=== PATIENT | female | born 2000 | race Caucasian/White ===

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

== ENCOUNTER 2018-02-13 07:37 | Emergency (ER) | payer OTHER ==
[~2018-02-13] VITALS: Ht 157.5 cm; Wt 61.3 kg
[~2018-02-13 07:37] MED LIST changes: -ABIL5TAB6 PO; -IBUP400T20 PO; -LORT5TAB PO; +MUPI2OIN TOPICAL; +NUVAMIS VAGINAL; -ZOLO20CO PO
[2018-02-13 07:49] VITALS: BP 123/61; PULSE 71; RESP 16; TEMP 97.7; O2SAT 98
[2018-02-13 08:05] LABS: BILIRUBIN, URINE NEG (NEG); BLOOD, URINE MOD (NEG); GLUCOSE,URINE NEG (NEG); KETONE, URINE NEG (NEG); NITRITE,URINE POS (NEG); URINE COLOR YELLOW (YELLW/STRAW); URINE LEUKOCYTE ESTERASE LARGE (NEG)
[2018-02-13 08:10] LABS: WBC, URINE INNUM /hpf (0-5); WHITE BLOOD CELL CLUMPS MOD
[2018-02-13 08:11] LABS: BACTERIA, URINE MANY /hpf; RBC, URINE 15-19 /hpf (0-3); SQUAMOUS EPITHELIAL CELL URINE > 8 /hpf (0-5)
[2018-02-13] MEDS ORDERED: KETOROLAC TROMETHAMINE 30 MG/ML (IVP) VIAL IV PUSH ONE (08:30)
[2018-02-13] MEDS ORDERED: SODIUM CHLOR 0.9% 1000 ML INJ 1,000 ML IV ONE (08:30)
[2018-02-13] MEDS ORDERED: cefTRIAXone INJ 2,000 MG in SODIUM CHLORIDE 0.9% INJ 100 ML IV ONE (08:30)
--- NOTE | 2018-02-13 08:34 | PD ---
HPI Chief Complaint: Flank/Kidney Pain Time Seen by Provider: 08:26 Travel History International Travel<30 days: No Contact w/Intl Traveler<30days: No Traveled to known affect area: No History of Present Illness HPI This 17-year-old female is complaining of right flank pain. 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 Was given 5 days of Bactrim. She took that day after the Bactrim was finished she started having quite bad flank pain. She has had frequent urinary tract infections in the past. 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 She has taken ibuprofen without much relief. He also has some digestive issues with swelling of her lower intestine. She says that is under control at this time. She is having severe pain in the right flank which has kept her from sleeping PFSH Past Medical History ADHD: No Depression: Yes Cancer: No Cardiovascular Problems: No Diabetes: No Diminished Hearing: No Psychiatric: No Immunizations Current: Yes Migraines: No Seizures: No Thyroid Disease: No Ulcer: Yes Influenza Vaccination: No ?: Not LMP: 12/19/17 Past Surgical History Surgical History: No Previous Surgery Appendectomy: No Cholecystectomy: No Other Surgery: No Social History Alcohol Use: Yes (OCCAS) Tobacco Use: No Substance Use: No Allergies-Medications (Allergen,Severity, Reaction): Coded Allergies: No Known Allergies (Verified Adverse Reaction, Unknown, 02/13/18) Reported Meds & Prescriptions Reported Meds & Active Scripts Active No Active Prescriptions or Reported Medications Review of Systems General / Constitutional: No: Fever, Chills Eyes: No: Diploplia, Blurred Vision HENT: No: Vertigo, Lightheadedness Cardiovascular: No: Chest Pain or Discomfort, Palpitations Respiratory: No: Cough, Shortness of Breath Gastrointestinal: No: Diarrhea, Abdominal Pain Genitourinary: Positive: Flank Pain Musculoskeletal: No: Myalgias, Arthralgias Skin: No Rash Neurologic: No: Weakness Endocrine: No: Heat Intolerance, Cold Intolerance Hematologic/Lymphatic: No: Easy Bruising Physical Exam Narrative GENERAL: Well-developed female SKIN: Focused skin assessment warm/dry. HEAD: Atraumatic. Normocephalic. EYES: Pupils equal and round. No scleral icterus. No injection or drainage. ENT: No nasal bleeding or discharge. Mucous membranes pink and moist. NECK: Trachea midline. No JVD. CARDIOVASCULAR: Regular rate and rhythm. No murmur appreciated. RESPIRATORY: No accessory muscle use. Clear to auscultation. Breath sounds equal bilaterally. GASTROINTESTINAL: Abdomen soft, non-tender, nondistended. Hepatic and splenic margins not palpable. There is right CVA tenderness MUSCULOSKELETAL: No obvious deformities. No clubbing. No cyanosis. No edema. NEUROLOGICAL: Awake and alert. No obvious cranial nerve deficits. Motor grossly within normal limits. Normal speech. PSYCHIATRIC: Appropriate mood and affect; insight and judgment normal. Data Data Last Documented VS Vital Signs Date Time Temp Pulse Resp B/P (MAP) Pulse Ox O2 Delivery O2 Flow Rate FiO2 02/13/18 09:00 89 20 91/53 (66) 98 02/13/18 07:49 97.7 Orders Orders Urinalysis - C+S If Indicated (02/13/18 07:39) Ed Urine Pregnancytest Poc (02/13/18 07:39) Urine Culture (02/13/18 07:56) Complete Blood Count With Diff (02/13/18 08:30) Basic Metabolic Panel (Bmp) (02/13/18 08:30) Ct Abd/Pel W/O Iv Contrast (02/13/18 08:30) Sodium Chlor 0.9% 1000 Ml Inj (Ns 1000 M (02/13/18 08:30) Ceftriaxone Inj (Rocephin Inj) (02/13/18 08:30) Ketorolac Inj (Toradol Inj) (02/13/18 08:30) Hydromorphone Pf Inj (Dilaudid Pf Inj) (02/13/18 10:30) Ondansetron Inj (Zofran Inj) (02/13/18 10:30) Labs Laboratory Tests Test 02/13/18 07:56 02/13/18 08:40 Urine Collection Type CLEAN CATCH Urine Color YELLOW Urine Turbidity CLOUDY Urine pH 6.0 Urine Specific [place] 1.020 Urine Protein 30 mg/dL Urine Glucose (UA) NEG mg/dL Urine Ketones NEG mg/dL Urine Occult Blood MOD Urine Nitrite POS Urine Bilirubin NEG Urine Urobilinogen 0.2 MG/DL Urine Leukocyte Esterase LARGE Urine RBC 15-19 /hpf Urine WBC INNUM /hpf Urine WBC Clumps MOD Urine Squamous Epithelial Cells > 8 /hpf Urine Bacteria MANY /hpf Microscopic Urinalysis Comment CULTURE INDICATED Urine Collection Time 07:56 White Blood Count 6.4 TH/MM3 Red Blood Count 4.38 MIL/MM3 Hemoglobin 12.9 GM/DL Hematocrit 38.6 % Mean Corpuscular Volume 88.0 FL Mean Corpuscular Hemoglobin 29.6 PG Mean Corpuscular Hemoglobin Concent 33.6 % Red Cell Distribution Width 13.0 % Platelet Count 158 TH/MM3 Mean Platelet Volume 7.4 FL Neutrophils (%) (Auto) 81.0 % Lymphocytes (%) (Auto) 10.4 % Monocytes (%) (Auto) 6.9 % Eosinophils (%) (Auto) 1.0 % Basophils (%) (Auto) 0.7 % Neutrophils # (Auto) 5.2 TH/MM3 Lymphocytes # (Auto) 0.7 TH/MM3 Monocytes # (Auto) 0.4 TH/MM3 Eosinophils # (Auto) 0.1 TH/MM3 Basophils # (Auto) 0.0 TH/MM3 CBC Comment DIFF FINAL Differential Comment Blood Urea Nitrogen 12 MG/DL Creatinine 0.85 MG/DL Random Glucose 89 MG/DL Calcium Level 9.0 MG/DL Sodium Level 140 MEQ/L Potassium Level 4.1 MEQ/L Chloride Level 108 MEQ/L Carbon Dioxide Level 27.2 MEQ/L Anion Gap 5 MEQ/L Estimat Glomerular Filtration Rate 86 ML/MIN [facility] Medical Decision Making Medical Screen Exam Complete: Yes Emergency Medical Condition: Yes Medical Record Reviewed: Yes Differential Diagnosis Differential includes UTI, renal colic, Narrative Course Patient was complaining of quite severe pain so was concerned that she might have a kidney stone. A CT has been done and is negative for stone or hydronephrosis. Her white count is negative. Her urinalysis does show innumerable white cells. She has been given initial dose of Rocephin. I will treat her with Cipro as she has failed Bactrim. I will also prescribe some [place] as ibuprofen has not been helping her pain Diagnosis Primary Impression: Pyelonephritis Scripts Hydrocodone-Acetaminophen ([place]) 5 Mg-325 Mg Tab 1 TAB PO Q4H Y for PAIN, #12 TAB 0 Refills Prov: Martínez Sarmiento MD 02/13/18 Ciprofloxacin (Cipro) 500 Mg Tab 500 MG PO BID for Infection for 10 Days, #20 TAB 0 Refills Prov: Martínez Sarmiento MD 02/13/18 Disposition: 01 DISCHARGE HOME Condition: Stable Martínez Sarmiento MD February 13, 2018 08:34
[2018-02-13 08:48] LABS: AUTOMATED NEUTROPHIL # 5.2 TH/MM3 (1.8-7.7); BASOPHIL % 0.7 % (0.0-2.0); EOSINOPHIL # 0.1 TH/MM3 (0-0.4); HEMATOCRIT 38.6 % (35.0-46.0); HEMOGLOBIN 12.9 GM/DL (11.6-15.3); LYMPH % 10.4 % (9.0-44.0); LYMPHOCYTE # 0.7 TH/MM3 (1.0-4.8); MEAN CORPUSCULAR HEMOGLOBIN 29.6 PG (27.0-34.0); MEAN CORPUSCULAR HGB CONC 33.6 % (32.0-36.0); MEAN PLATELET VOLUME 7.4 FL (7.0-11.0); MONO % 6.9 % (0.0-8.0); MONOCYTE # 0.4 TH/MM3 (0-0.9); PLATELET COUNT 158 TH/MM3 (150-450); RED BLOOD COUNT 4.38 MIL/MM3 (4.00-5.30); WHITE BLOOD COUNT 6.4 TH/MM3 (4.0-11.0)
[2018-02-13 08:55] LABS: BICARBONATE 27.2 MEQ/L (21.0-32.0)
[2018-02-13 08:58] LABS: CREATININE 0.85 MG/DL (0.50-1.00)
[2018-02-13 09:00] VITALS: BP 91/53; PULSE 89; RESP 20; O2SAT 98
--- NOTE | 2018-02-13 10:16 | RADRPT ---
EXAM DATE/TIME: 02/13/2018 09:42 [place] COMPARISON: No previous studies available for comparison. INDICATIONS : Right flank pain. ORAL CONTRAST: No oral contrast ingested. RADIATION DOSE: 4.38 CTDIvol (mGy) MEDICAL HISTORY : None SURGICAL HISTORY : None. ENCOUNTER: Initial ACUITY: 3 days PAIN SCALE: 7/10 LOCATION: Right flank TECHNIQUE: Volumetric scanning of the abdomen and pelvis was performed. Using automated exposure control and ad justment of the mA and/or kV according to patient size, radiation dose was kept as low as reasonably achievable to obtain optimal diagnostic quality images. DICOM format image data is available electro nically for review and comparison. FINDINGS: LOWER LUNGS: The visualized lower lungs are clear. LIVER: Visualized portions are grossly unremarkable. SPLEEN: Visualized portions are grossly unremarkable. PANCREAS: Within normal limits. KIDNEYS: Normal in size and shape. There is no mass, stone, or hydronephrosis. ADRENAL GLANDS: Within normal limits. VASCULAR: There is no aortic aneurysm. BOWEL/MESENTERY: The stomach, small bowel, and colon demonstrate no acute abnormality. There is no free intraperitone al air or fluid. ABDOMINAL WALL: Within normal limits. RETROPERITONEUM: There is no lymphadenopathy. BLADDER: No wall thickening or mass. REPRODUCTIVE: Within normal limits. INGUINAL: There is no lymphadenopathy or hernia. MUSCULOSKELETAL: Within normal limits for patient age. CONCLUSION: No evidence of kidney stones or hydronephrosis. Charly Headley MD on February 13, 2018 at 10:10 Board Certified Radiologist. This report was verified electronically.
[2018-02-13] MEDS ORDERED: CIPR-9 PO (10:24)
[2018-02-13] MEDS ORDERED: NORC5TAB PO (10:24)
[2018-02-13 10:27] VITALS: BP 100/61; PULSE 67; RESP 20; O2SAT 94
[2018-02-13] MEDS ORDERED: ONDANSETRON HCL 4 MG/2 ML VIAL IV PUSH ONE (10:30)
[2018-02-13] MEDS ORDERED: HYDROmorphone HCL PF 2 MG/ML VIAL IV PUSH ONE (10:30)
[2018-02-13] MEDS ORDERED: SODIUM CHLORID 0.9% 500 ML INJ 500 ML IV ONE (10:30)
[2018-02-13 11:12] VITALS: BP 109/63; PULSE 61; RESP 20; O2SAT 95
== END 2018-02-13 11:22 | disposition home or self-care (01) ==
LOC: PHED 07:37
DX: N12 Tubulo-interstitial nephritis, not specified as acute or chronic (principal); B96.20 Unspecified Escherichia coli [E. coli] as the cause of diseases classified elsewhere; F32.9 Major depressive disorder, single episode, unspecified; Z87.440 Personal history of urinary (tract) infections
CPT/HCPCS: 74176; 80048; 81001; 84703; 85025; 87077; 87086; 87186; 96361; 96365; 96375; 99284; J0696; J1170; J1885; J2405; J7030; J7040